=== PATIENT | female | born 1990 | race Caucasian/White ===

== ENCOUNTER 2016-08-22 17:22 | Emergency (ER) | payer OTHER ==
[~2016-08-22] VITALS: Ht 182.9 cm; Wt 100.0 kg
[~2016-08-22 17:22] MED LIST: BENZ100C84 PO; HYDR5SYP11 PO; LEVO1TAB33 PO; PLMIN90 INH; VNTHFA/IN INH
[2016-08-22 17:30] VITALS: TEMP 36.9; Ht 182.9 cm; Wt 100.0 kg
[2016-08-22] MEDS ORDERED: SODIUM CHLORIDE 0.9% 1000ML 1,000 ML IV STA ×2 (18:16)
[2016-08-22] MEDS ORDERED: ONDANSETRON INJ 2 MG/ML 2 ML VIAL IV STA (18:16)
[2016-08-22] MEDS ORDERED: MoRPHine SULFATE 10 MG/ML CARP/VIAL IV STA (18:16)
[2016-08-22] MEDS ORDERED: MoRPHine SULFATE 4 MG/ML 1 ML CARP\\VIAL IV PRN (18:30)
[2016-08-22 19:29] LABS: BASO % 0.1 %; BASO ABS # 0.02 K/uL (0-0.2); COMPLETE YES; HEMATOCRIT 41.1 % (37-47); IG% 0.6 %; LYMPH % 29.1 %; LYMPH ABS # 3.91 K/uL (1.2-3.4); MEAN CELL VOLUME 92.4 fL (80-100); MEAN CORPUSCULAR HEMOGLOBIN 32.4 pg (25-34); MEAN PLATELET VOLUME 9.9 fL (7.4-10.4); MONO % 7.8 %; NEUT % 60.4 %; PLATELET COUNT 211 K/uL (130-400); RED BLOOD COUNT 4.45 M/uL (4.2-5.4); WHITE BLOOD COUNT 13.45 K/uL (4.8-10.8)
[2016-08-22 19:47] LABS: ALT/SGPT 21 U/L (12-78); AMYLASE 69 U/L (25-115); BLOOD UREA NITROGEN 10 mg/dl (7-18); BUN/CREATININE RATIO 10.8 (10-20); CALCIUM 8.9 mg/dl (8.5-10.1); CARBON DIOXIDE 24 mmol/L (21-32); CHLORIDE 104 mmol/L (98-107); CREATININE 0.89 mg/dl (0.60-1.20); GLUCOSE 82 mg/dl (70-99); POTASSIUM 3.5 mmol/L (3.5-5.1); SODIUM 139 mmol/L (136-145)
[2016-08-22 19:52] LABS: ALB/GLOB RATIO 1.3 (0.9-2); ALKALINE PHOSPHATASE 57 U/L (45-117); AST/SGOT 15 U/L (15-37)
--- NOTE | 2016-08-22 20:01 | DIAGNOSTIC IMAGING REPORT ---
ABDOMEN 2VIEW W/PA CHEST RTN CLINICAL HISTORY: Abdominal and chest pain. Diarrhea. COMPARISON STUDY: 07/02/2016 FINDINGS: The erect chest reveals no free air. Hazy basilar densities are felt to relate to overlying breast tissue.] Supine views the abdomen reveal mildly dilated left upper quadrant small bowel loops. There is no conventional radiographic evidence of a high-grade bowel obstruction. IMPRESSION: 1. Nonspecific bowel gas pattern with mildly dilated left upper quadrant small bowel loops 2. No conventional radiographic evidence of a high-grade bowel obstruction. No evidence of free air. Electronically signed by: Surjit Morgan M.D. 08/22/2016 8:00 PM Dictated Date/Time: 08/22/2016 7:58 PM
[2016-08-22] MEDS ORDERED: AMPH20CA3 PO (20:11)
--- NOTE | 2016-08-22 20:19 | DIAGNOSTIC IMAGING REPORT ---
BILIARY ULTRASOUND CLINICAL HISTORY: Right upper quadrant abdominal pain, nausea and diarrhea. COMPARISON STUDY: CT scan performed December 2007 FINDINGS: The pancreas appears normal as visualized. No hepatic masses are visualized. The gallbladder appears sonographically normal. The common bile duct is at the upper limits of normal diameter measuring 6 mm. There is no significant right-sided hydronephrosis. IMPRESSION: Normal study Electronically signed by: Surjit Morgan M.D. 08/22/2016 8:18 PM Dictated Date/Time: 08/22/2016 8:16 PM
[2016-08-22] MEDS ORDERED: OPTIRAY 320 IV PRN (21:00)
--- NOTE | 2016-08-22 21:25 | DIAGNOSTIC IMAGING REPORT ---
CT ABD/PELVIS IV CONTRAST ONLY CLINICAL HISTORY: Abdominal pain, nausea, vomiting, diarrhea COMPARISON STUDY: Gallbladder ultrasound performed August 22, 2016, abdominal series performed the first 2016, CT scan performed December 2007 TECHNIQUE: Following the IV administration of 119 mL of Optiray-320, CT scan of the abdomen and pelvis was performed from the lung bases to the proximal femurs. Images are reviewed in the axial, sagittal, and coronal planes. IV contrast was administered without complication. CT DOSE: 634.40 mGy.cm FINDINGS: Lower chest: There are bibasal atelectatic changes. Liver: The contrast-enhanced liver is normal in size, contour, and attenuation. There is no intrahepatic biliary ductal dilatation. The hepatic veins and portal veins are patent. Gallbladder: Unremarkable. Spleen: Normal in size and attenuation. Pancreas: Unremarkable. Adrenal glands: Unremarkable. Kidneys: There is symmetric renal cortical enhancement. The kidneys are normal in size without hydronephrosis. Bowel: The appendix is surgically absent. There is no acute diverticulitis. There are no transition zones indicate bowel obstruction. Peritoneum: There is no intraperitoneal free air or abdominal ascites. Vasculature: The abdominal aorta is normal in course and caliber. Adenopathy: None. Pelvic viscera: The bladder, and pelvic viscera are unremarkable. Skeletal structures: There is bilateral L5 spondylolysis. There is a grade 1 spondylolisthesis of L5 and S1. IMPRESSION: 1. No acute intra-abdominal or pelvic findings 2. No evidence of bowel obstruction. No evidence of free air 3. No acute inflammatory changes Electronically signed by: Surjit Morgan M.D. 08/22/2016 9:24 PM Dictated Date/Time: 08/22/2016 9:20 PM
[2016-08-22] MEDS ORDERED: ONDA4TAB10 SL (21:57)
[2016-08-22] MEDS ORDERED: OMEP40CA41 PO (21:57)
[2016-08-22] MEDS ORDERED: OXYC1TAB3 PO (21:57)
--- NOTE | 2016-08-22 21:58 | EMERGENCY ROOM VISIT NOTE ---
History First contact with patient: 17:57 Chief Complaint: ABDOMINAL PAIN Stated Complaint: CHEST PAIN,ABDOMINAL PAIN,DIARRHEA,BACK/SHOULDER P Nursing Triage Summary: patient reoits having abd pain in right upper quad under ribs that has been persistant for 4 days with loose stools and nausea. History of Present Illness Patient is a 26-year-old white female who presents to the emergency department for evaluation of abdominal pain and diarrhea. She's had symptoms for the last 4 days. She notes epigastric and right upper quadrant pain that radiates through to her back and up to her midsternal area into her right shoulder. She notes a lot of bloating and feeling very gassy. She has a lot of cramping, but occasionally is doubled over because of sharp pain. She states that her symptoms are always worsened after eating. She also notes diarrhea, reporting roughly 10 loose watery bowel movements per day. She denies hematochezia or melena. She's been nauseous and had dry heaves but has not vomited. She denies any indigestion or reflux. She has not had a fever. She states that she has had similar episodes over the last 6 months but they have been shorter in duration and she has been able to tolerate them. They have never lasted this long and she has never previously been seen for this. She has not taken any medication for her discomfort which she presently rates an 8/10. She was speaking with her mom who suggested that it could be related to her gallbladder. She reports a grandmother had a history of a cholecystectomy. She denies any lower abdominal pain. She is status post appendectomy. She states that her last menstrual period was August 11, and she denies any chance of . She denies any prior gynecologic history including ovarian cyst or pelvic infections. Review of Systems Review of systems as per HPI. All other systems reviewed were negative. 10 systems reviewed. Past Medical/Surgical History Medical Problems: (1) ADD (attention deficit disorder) (2) Avulsion fracture of metatarsal bone of left foot (3) Bronchitis (4) Foot pain (5) Foreign body of finger of left hand, superficial (6) Headache (7) Headache (8) Headache (9) Laceration of thumb (10) Migraine (11) Shortness of breath (12) Strain of foot, left Surgical Problems: (1) History of appendectomy (2) History of arthroscopic knee surgery (3) History of nasal septoplasty (4) Status post tonsillectomy and adenoidectomy Electronic medical records are reviewed and summarized as above/below. See Problem List. Family History Cancer Diabetes mellitus Hypertension Kidney disease Kidney stones Social History Smoking Status: Current Every Day Smoker Alcohol Use: occasionally Drug Use: none Marital Status: single Housing Status: lives with significant other Occupation Status: employed Current/Historical Medications Scheduled Amphetamine-Dextroamphetamine 20MG (Adderall Xr 20MG), 20 MG PO BID Omeprazole (Prilosec), 1 CAP PO DAILY Scheduled PRN Ondasetron Odt (Zofran Odt), 4 MG SL Q4 PRN for Nausea or Vomiting Oxycodone Immediate Rel Tab (Roxicodone Ir), 1-2 TAB PO Q4H PRN for Severe Pain Allergies Coded Allergies: No Known Allergies (Verified , 07/02/16) Physical Exam Vital Signs Date Time Temp Pulse Resp B/P Pulse Ox O2 Delivery O2 Flow Rate FiO2 08/22/16 22:11 99 18 132/93 96 Room Air 08/22/16 20:55 97 16 118/74 96 Room Air 08/22/16 17:30 36.9 114 18 165/105 100 Room Air Physical Exam CONSTITUTIONAL: Patient is uncomfortable appearing 26-year-old white female who is awake and alert and in no acute distress. EYES: Pupils equal, round, reactive to light and accommodation. EOMs intact without nystagmus. Sclera are anicteric. ENT: Tympanic membranes intact, with normal landmarks. External canals are clear. Oral and nasopharynx are clear. Mucous membranes are moist, no lesions , tongue and gums appear normal. NECK: Supple without lymphadenopathy. No thyromegaly. No meningeal signs. Full active range of motion without discomfort. CARDIOVASCULAR: Regular rate and rhythm, with normal S1 and S2, no murmur or gallop or rub is heard. No carotid bruits auscultated. No JVD. Peripheral pulses easy to palpable. RESPIRATORY: Breath sounds equal and clear to auscultation without wheezes, rales, or rhonchi heard. Full and equal chest expansion without accessory muscle use or retractions. GI: Bowel sounds are present. Well-healed right lower quadrant surgical incision. Abdomen is soft, nondistended, tender to percussion and palpation in the epigastric and the right upper quadrant, with voluntary guarding. No organomegaly. No pulsatile masses. MUSCULOSKELETAL: Full range of motion of extremities x 4 with good strength. No cyanosis, edema, joint tenderness or swelling. No deformity. INTEGUMENTARY: No lesions or rash, normal skin turgor. NEUROLOGICAL: Alert, oriented, and cooperative. Cranial nerves, sensation and strength grossly intact. Pupils round, equal, and react to light, EOMs are full. LYMPH: No lymphadenopathy. Medical Decision & Procedures ER Provider Diagnostic Interpretation: ABDOMEN 2VIEW W/PA CHEST RTN CLINICAL HISTORY: Abdominal and chest pain. Diarrhea. COMPARISON STUDY: 07/02/2016 FINDINGS: The erect chest reveals no free air. Hazy basilar densities are felt to relate to overlying breast tissue.] Supine views the abdomen reveal mildly dilated left upper quadrant small bowel loops. There is no conventional radiographic evidence of a high-grade bowel obstruction. IMPRESSION: 1. Nonspecific bowel gas pattern with mildly dilated left upper quadrant small bowel loops 2. No conventional radiographic evidence of a high-grade bowel obstruction. No evidence of free air. BILIARY ULTRASOUND CLINICAL HISTORY: Right upper quadrant abdominal pain, nausea and diarrhea. COMPARISON STUDY: CT scan performed December 2007 FINDINGS: The pancreas appears normal as visualized. No hepatic masses are visualized. The gallbladder appears sonographically normal. The common bile duct is at the upper limits of normal diameter measuring 6 mm. There is no significant right-sided hydronephrosis. IMPRESSION: Normal study CT ABD/PELVIS IV CONTRAST ONLY CLINICAL HISTORY: Abdominal pain, nausea, vomiting, diarrhea COMPARISON STUDY: Gallbladder ultrasound performed August 22, 2016, abdominal series performed the first 2016, CT scan performed December 2007 TECHNIQUE: Following the IV administration of 119 mL of Optiray-320, CT scan of the abdomen and pelvis was performed from the lung bases to the proximal femurs. Images are reviewed in the axial, sagittal, and coronal planes. IV contrast was administered without complication. CT DOSE: 634.40 mGy.cm FINDINGS: Lower chest: There are bibasal atelectatic changes. Liver: The contrast-enhanced liver is normal in size, contour, and attenuation. There is no intrahepatic biliary ductal dilatation. The hepatic veins and portal veins are patent. Gallbladder: Unremarkable. Spleen: Normal in size and attenuation. Pancreas: Unremarkable. Adrenal glands: Unremarkable. Kidneys: There is symmetric renal cortical enhancement. The kidneys are normal in size without hydronephrosis. Bowel: The appendix is surgically absent. There is no acute diverticulitis. There are no transition zones indicate bowel obstruction. Peritoneum: There is no intraperitoneal free air or abdominal ascites. Vasculature: The abdominal aorta is normal in course and caliber. Adenopathy: None. Pelvic viscera: The bladder, and pelvic viscera are unremarkable. Skeletal structures: There is bilateral L5 spondylolysis. There is a grade 1 spondylolisthesis of L5 and S1. IMPRESSION: 1. No acute intra-abdominal or pelvic findings 2. No evidence of bowel obstruction. No evidence of free air 3. No acute inflammatory changes Laboratory Results 08/22/16 19:22 Red Blood Count 4.45, Mean Corpuscular Volume 92.4, Mean Corpuscular Hemoglobin 32.4, Mean Corpuscular Hemoglobin Concent 35.0, Mean Platelet Volume 9.9, Neutrophils (%) (Auto) 60.4, Lymphocytes (%) (Auto) 29.1, Monocytes (%) (Auto) 7.8, Eosinophils (%) (Auto) 2.0, Basophils (%) (Auto) 0.1, Neutrophils # (Auto) 8.12, Lymphocytes # (Auto) 3.91, Monocytes # (Auto) 1.05, Eosinophils # (Auto) 0.27, Basophils # (Auto) 0.02 08/22/16 19:22 Test 08/22/16 18:55 08/22/16 19:22 Urine Test NEG (NEG) White Blood Count 13.45 K/uL (4.8-10.8) Red Blood Count 4.45 M/uL (4.2-5.4) Hemoglobin 14.4 g/dL (12.0-16.0) Hematocrit 41.1 % (37-47) Mean Corpuscular Volume 92.4 fL (80-100) Mean Corpuscular Hemoglobin 32.4 pg (25-34) Mean Corpuscular Hemoglobin Concent 35.0 g/dl (32-36) Platelet Count 211 K/uL (130-400) Mean Platelet Volume 9.9 fL (7.4-10.4) Neutrophils (%) (Auto) 60.4 % Lymphocytes (%) (Auto) 29.1 % Monocytes (%) (Auto) 7.8 % Eosinophils (%) (Auto) 2.0 % Basophils (%) (Auto) 0.1 % Neutrophils # (Auto) 8.12 K/uL (1.4-6.5) Lymphocytes # (Auto) 3.91 K/uL (1.2-3.4) Monocytes # (Auto) 1.05 K/uL (0.11-0.59) Eosinophils # (Auto) 0.27 K/uL (0-0.5) Basophils # (Auto) 0.02 K/uL (0-0.2) RDW Standard Deviation 41.4 fL (36.4-46.3) RDW Coefficient of Variation 12.2 % (11.5-14.5) Immature Granulocyte % (Auto) 0.6 % Immature Granulocyte # (Auto) 0.08 K/uL (0.00-0.02) Anion Gap 11.0 mmol/L (3-11) Est Creatinine Clear Calc Drug Dose 127.9 ml/min Estimated GFR () 104.4 Estimated GFR (Non- 90.1 BUN/Creatinine Ratio 10.8 (10-20) Calcium Level 8.9 mg/dl (8.5-10.1) Total Bilirubin 0.5 mg/dl (0.2-1) Aspartate Amino Transf (AST/SGOT) 15 U/L (15-37) Alanine Aminotransferase (ALT/SGPT) 21 U/L (12-78) Alkaline Phosphatase 57 U/L (45-117) Troponin I < 0.015 ng/ml (0-0.045) Total Protein 7.7 gm/dl (6.4-8.2) Albumin 4.3 gm/dl (3.4-5.0) Globulin 3.4 gm/dl (2.5-4.0) Albumin/Globulin Ratio 1.3 (0.9-2) Amylase Level 69 U/L (25-115) Lipase 168 U/L (73-393) Medications Administered Medications (Trade) Dose Ordered Sig/Champ Route Start Time Stop Time Status Last Admin Dose Admin Sodium Chloride (Nss 1000ml) 1,000 ml @ 999 mls/hr Q1H1M STAT IV 08/22/16 18:16 08/22/16 19:16 DC 08/22/16 19:34 999 MLS/HR Ondansetron HCl (Zofran Inj) 4 mg NOW STAT IV 08/22/16 18:16 08/22/16 18:20 DC 08/22/16 19:33 4 MG Morphine Sulfate (MoRPHine SULFATE INJ) 6 mg NOW STAT IV 08/22/16 18:16 08/22/16 18:20 DC 08/22/16 19:33 6 MG Morphine Sulfate (MoRPHine SULFATE INJ) 4 mg Q1H PRN IV 08/22/16 18:30 08/22/16 22:36 DC 08/22/16 20:58 4 MG Ondansetron HCl (ZOFRAN ODT 4MG Home Pack) 1 homepack UD ONCE PO 08/22/16 22:00 08/22/16 22:01 DC 08/22/16 22:08 1 HOMEPACK Oxycodone HCl (Roxicodone Immediate Rel 5MG Home Pack) 1 homepack UD ONCE PO 08/22/16 22:00 08/22/16 22:01 DC 08/22/16 22:08 1 HOMEPACK ECG Indication: abdominal pain Rate (beats per minute): 94 Rhythm: normal sinus Findings: no acute ischemic change, no ectopy Change: no significant change ED Course The patient was seen and evaluated as above. Old records are reviewed. IV access was obtained and she was hydrated with normal saline solution. She was medicated with morphine and Zofran IV. Laboratory studies were collected including CBC with differential, CMP, amylase, lipase and troponin. Urine dip was completely clear and test was negative. EKG was obtained and was unremarkable. There is no evidence for acute ischemic changes or ectopy. Acute abdominal series was obtained and was unremarkable. Chest was clear there was no evidence for obstructive pattern. Given her right upper quadrant pain, ultrasound was obtained, which did not demonstrate evidence for cholelithiasis or acute cholecystitis. Laboratories studies demonstrated a slightly elevated white count at 13,400 with left shift, she is not anemic. Electrolytes and liver functions are within normal limits. Pancreatic enzymes are not elevated. Troponin is negative. Given her persistent right-sided abdominal pain, did elect to perform CT scan of the abdomen and pelvis with IV contrast. There is no evidence for intra- abdominal or pelvic findings. No evidence for acute inflammatory changes, free air or bowel obstruction. All laboratory and diagnostic imaging findings were discussed with the patient. Differential diagnoses entertained includes GERD, gastritis, esophagitis, peptic ulcer disease, pancreatitis, biliary colic, acute cholecystitis, cholelithiasis, bowel obstruction, perforation, among others. Supportive care measures were discussed. She was encouraged to follow a clear liquid diet, and was given prescriptions for Prilosec and Zofran and a small prescription for oxycodone. She was encouraged to follow-up with her primary care provider as she may require further workup including HIDA scan or GI evaluation. Medical Decision See ED Course. Impression Primary Impression: Right upper quadrant abdominal pain Departure Information Prescriptions Oxycodone Immediate Rel Tab (ROXICODONE IR) 5 Mg Tab 1-2 TAB PO Q4H Y for Severe Pain, #10 TAB For Initial Treatment Prov: Mindy Hayes PA 08/22/16 Omeprazole (PRILOSEC) 40 Mg Cap 1 CAP PO DAILY for 30 Days, #30 CAP 3 Refills Prov: Minyd Hayes PA 08/22/16 Ondasetron Odt (ZOFRAN ODT) 4 Mg Tab 4 MG SL Q4 Y for Nausea or Vomiting, #20 TAB Prov: Mindy Hayes PA 08/22/16 Referrals Kike Dominguez M.D. (PCP) Patient Instructions [facility] Additional Instructions ABDOMINAL PAIN INSTRUCTIONS: DO NOT drive, drink alcohol, operate machinery, or perform dangerous activities today. You were given medications in the ER that can affect your ability to safely function or operate a vehicle. Oxycodone (OxyIR) 5mg: Take 1-2 pills every four hours as needed for breakthrough pain. Avoid alcohol, operating machinery or dangerous equipment, working on ladders or roofs, DRIVING, making important decisions, or situations where being under the influence may be dangerous. It is recommended to use an [id number] stool softener such as Colace, 100mg twice daily while taking this medication to avoid constipation. Acetaminophen(Tylenol) may be used for fever or pain. Use 1000mg every eight hours as needed. Avoid using more than 3000mg in a 24 hour period. This is available over the counter. Zofran(odansetron) tablets 4mg: Take one and allow it to dissolve in your mouth every four hours as needed for nausea or vomiting. Prilosec 40mg : Take 1 tablet daily. Read all the package inserts or medication information paperwork provided. If you have any questions or concerns call your primary provider, pharmacist or the ER for assistance. Rest and drink plenty of fluids as tolerated. Slow sips of water or sports drinks are recommended instead of large amounts all at once. Continue current medications. Once your stomach is settled start with a clear liquid diet (jello, soup broth, etc.) and then advance as tolerated. You should avoid full, heavy meals for about 24 hrs from the time your symptoms resolved. Avoid greasy, fatty foods. Return to the ER immediately for worsening or persistent abdominal pain, vomiting, fevers, chest pains, difficulty breathing, black or bloody stools, worsening of your condition, or as needed. Follow up with your primary physician in 1-2 days for a recheck of your current condition.
[2016-08-22] MEDS ORDERED: OXYCODONE IR HOME PACK PO ONE (22:00)
[2016-08-22] MEDS ORDERED: ONDANSETRON HOME PACK 4MG OD TAB PO ONE (22:00)
[2016-08-22 22:11] VITALS: BP 132/93; PULSE 99; O2SAT 96
[2016-08-25] MEDS ORDERED: CYCL10TA6 PO (14:19)
[2016-08-25] MEDS ORDERED: OXYC-57 PO (14:19)
== END 2016-08-22 22:12 | disposition home or self-care (01) ==
LOC: C.EDB 17:23 → C.EDC 22:12
DX: R10.11 Right upper quadrant pain (principal); F90.9 Attention-deficit hyperactivity disorder, unspecified type; F17.200 Nicotine dependence, unspecified, uncomplicated; Z87.81 Personal history of (healed) traumatic fracture; Z87.828 Personal history of other (healed) physical injury and trauma; Z98.890 Other specified postprocedural states; Z79.899 Other long term (current) drug therapy; Z80.9 Family history of malignant neoplasm, unspecified; Z83.3 Family history of diabetes mellitus; Z82.49 Family history of ischemic heart disease and other diseases of the circulatory system; Z84.1 Family history of disorders of kidney and ureter

== ENCOUNTER 2016-08-24 22:58 | Observation (INO) | payer OTHER ==
[~2016-08-24] VITALS: Ht 182.9 cm; Wt 101.8 kg
[~2016-08-24 22:58] MED LIST changes: +AMPH20CA3 PO; -BENZ100C84 PO; -HYDR5SYP11 PO; -LEVO1TAB33 PO; +OMEP40CA41 PO; +ONDA4TAB10 SL; +OXYC1TAB3 PO; -PLMIN90 INH; -VNTHFA/IN INH
[2016-08-24] MEDS ORDERED: MoRPHine SULFATE 4 MG/ML 1 ML CARP\\VIAL IV STA (23:31)
[2016-08-24] MEDS ORDERED: ONDANSETRON INJ 2 MG/ML 2 ML VIAL IV STA (23:31)
[2016-08-24] MEDS ORDERED: SODIUM CHLORIDE 0.9% 1000ML 1,000 ML IV STA (23:31)
[2016-08-25 00:08] LABS: URINE APPEARANCE CLEAR (CLEAR); URINE BILIRUBIN NEG (NEG); URINE COLOR YELLOW; URINE NITRITE NEG (NEG); URINE PH 6.5 (4.5-7.5); URINE SPECIFIC GRAVITY 1.024 (1.000-1.030); UROBILINOGEN NEG (NEG)
[2016-08-25 00:28] LABS: BASO % 0.2 %; BASO ABS # 0.02 K/uL (0-0.2); COMPLETE YES; EOS % 2.3 %; HEMATOCRIT 39.3 % (37-47); IG% 0.7 %; LYMPH % 38.7 %; LYMPH ABS # 3.78 K/uL (1.2-3.4); MEAN CELL VOLUME 93.1 fL (80-100); MEAN CORPUSCULAR HEMOGLOBIN 33.2 pg (25-34); MEAN CORPUSCULAR HGB CONC 35.6 g/dl (32-36); MEAN PLATELET VOLUME 10.3 fL (7.4-10.4); MONO % 10.1 %; PLATELET COUNT 197 K/uL (130-400); RED BLOOD COUNT 4.22 M/uL (4.2-5.4); WHITE BLOOD COUNT 9.77 K/uL (4.8-10.8)
[2016-08-25 00:31] LABS: MANUAL MICROSCOPIC REQUIRED? NO; REVIEW REQ? NO
[2016-08-25 00:51] LABS: ALKALINE PHOSPHATASE 55 U/L (45-117); ALT/SGPT 23 U/L (12-78); AST/SGOT 19 U/L (15-37); BLOOD UREA NITROGEN 9 mg/dl (7-18); CALCIUM 8.8 mg/dl (8.5-10.1); CARBON DIOXIDE 27 mmol/L (21-32); CHLORIDE 106 mmol/L (98-107); CREATININE 0.78 mg/dl (0.60-1.20); GLUCOSE 93 mg/dl (70-99); POTASSIUM 3.7 mmol/L (3.5-5.1); SODIUM 141 mmol/L (136-145)
[2016-08-25] MEDS ORDERED: KETOROLAC TROMETHAMINE 30 MG/ML VIAL IV STA (00:52)
[2016-08-25] MEDS ORDERED: HYDROmorphone INJ 1 MG/ML SYR IV PRN (02:00)
[2016-08-25 02:01] LABS: PARTIAL THROMBOPLASTIN RATIO 1.1
--- NOTE | 2016-08-25 02:07 | EMERGENCY ROOM VISIT NOTE ---
History Report prepared by Gallo: Manan Herring Under the Supervision of: Dr. Kala Lemus D.O. First contact with patient: 23:07 Chief Complaint: ABDOMINAL PAIN Stated Complaint: ABDOMINAL,CHEST,BACK PAIN NAUSEA,VOMITING History of Present Illness The patient is a 26 year old female who presents to the Emergency Room with complaints of persistent abdominal "cramping" beginning 6 days ago. She was seen in the ED earlier this week for similar symptoms, but states that her symptoms have not improved. She denies any known fevers. The patient also complains of "greyish-bluish" stools, and chills. Her last normal bowel movement was several hours ago. She states that she experienced some chest pain as well, but does not have any currently. The patient states that she has been noticing her abdominal pain and chest pain over the past 6 months, but states that it was never regular until this week. Source of History: patient Onset: last week Position: abdomen Timing: other (persistent) Associated Symptoms: + chills, No fevers Note: The patient complains of "greyish-bluish" stools. Review of Systems See HPI for pertinent positives & negatives. A total of 10 systems reviewed and were otherwise negative. Past Medical & Surgical Medical Problems: (1) ADD (attention deficit disorder) (2) Avulsion fracture of metatarsal bone of left foot (3) Bronchitis (4) Foot pain (5) Foreign body of finger of left hand, superficial (6) Headache (7) Headache (8) Headache (9) Laceration of thumb (10) Migraine (11) Shortness of breath (12) Strain of foot, left Surgical Problems: (1) History of appendectomy (2) History of arthroscopic knee surgery (3) History of nasal septoplasty (4) Status post tonsillectomy and adenoidectomy Family History Cancer Diabetes mellitus Hypertension Kidney disease Kidney stones Social History Smoking Status: Current Every Day Smoker Alcohol Use: occasionally Drug Use: none Marital Status: single Housing Status: lives with significant other Occupation Status: employed Current/Historical Medications Scheduled Amphetamine-Dextroamphetamine 20MG (Adderall Xr 20MG), 20 MG PO BID Omeprazole (Prilosec), 1 CAP PO DAILY Scheduled PRN Ondasetron Odt (Zofran Odt), 4 MG SL Q4 PRN for Nausea or Vomiting Oxycodone Immediate Rel Tab (Roxicodone Ir), 1-2 TAB PO Q4H PRN for Severe Pain Allergies Coded Allergies: No Known Allergies (Verified , 07/02/16) Physical Exam Vital Signs Date Time Temp Pulse Resp B/P Pulse Ox O2 Delivery O2 Flow Rate FiO2 08/25/16 01:30 84 24 144/91 97 Room Air 08/25/16 00:39 78 30 134/89 98 Room Air 08/24/16 23:00 37.0 105 20 162/105 96 Room Air Physical Exam HEENT: Head - normocephalic and atraumatic Pupils are equal, round, and reactive to light. Extraocular eye muscles are intact, and sclera are anicteric. Nose - moist nasal mucosa without discharge. Mouth - moist buccal mucosa. Oropharynx is nonerythematous and there is no tonsillar exudate or edema noted. Neck: Supple; no JVD, nuchal rigidity, cervical lymphadenopathy. Heart: Regular rate and rhythm. There is a normal S1 and S2 with no murmurs, clicks, or gallops appreciated. Lungs: Clear to auscultation bilaterally with no wheezes, rales, or rhonchi. Abdomen: Soft, nondistended, with good bowel sounds. Pain in the suprapubic region and RUQ area. There are no palpable pulsatile masses or hepatosplenomegaly. There is no guarding, rigidity, or rebound noted. Extremities: No evidence of cyanosis, clubbing, or edema. There are easily palpable peripheral pulses. Skin: warm and dry with good turgor and no rashes. Medical Decision & Procedures Laboratory Results 08/25/16 00:17 Red Blood Count 4.22, Mean Corpuscular Volume 93.1, Mean Corpuscular Hemoglobin 33.2, Mean Corpuscular Hemoglobin Concent 35.6, Mean Platelet Volume 10.3, Neutrophils (%) (Auto) 48.0, Lymphocytes (%) (Auto) 38.7, Monocytes (%) (Auto) 10.1, Eosinophils (%) (Auto) 2.3, Basophils (%) (Auto) 0.2, Neutrophils # (Auto ) 4.69, Lymphocytes # (Auto) 3.78, Monocytes # (Auto) 0.99, Eosinophils # (Auto ) 0.22, Basophils # (Auto) 0.02 08/25/16 00:17 Test 08/24/16 23:15 08/25/16 00:17 Urine Color YELLOW Urine Appearance CLEAR (CLEAR) Urine pH 6.5 (4.5-7.5) Urine Specific [place] 1.024 (1.000-1.030) Urine Protein NEG (NEG) Urine Glucose (UA) NEG (NEG) Urine Ketones NEG (NEG) Urine Occult Blood NEG (NEG) Urine Nitrite NEG (NEG) Urine Bilirubin NEG (NEG) Urine Urobilinogen NEG (NEG) Urine Leukocyte Esterase NEG (NEG) White Blood Count 9.77 K/uL (4.8-10.8) Red Blood Count 4.22 M/uL (4.2-5.4) Hemoglobin 14.0 g/dL (12.0-16.0) Hematocrit 39.3 % (37-47) Mean Corpuscular Volume 93.1 fL (80-100) Mean Corpuscular Hemoglobin 33.2 pg (25-34) Mean Corpuscular Hemoglobin Concent 35.6 g/dl (32-36) Platelet Count 197 K/uL (130-400) Mean Platelet Volume 10.3 fL (7.4-10.4) Neutrophils (%) (Auto) 48.0 % Lymphocytes (%) (Auto) 38.7 % Monocytes (%) (Auto) 10.1 % Eosinophils (%) (Auto) 2.3 % Basophils (%) (Auto) 0.2 % Neutrophils # (Auto) 4.69 K/uL (1.4-6.5) Lymphocytes # (Auto) 3.78 K/uL (1.2-3.4) Monocytes # (Auto) 0.99 K/uL (0.11-0.59) Eosinophils # (Auto) 0.22 K/uL (0-0.5) Basophils # (Auto) 0.02 K/uL (0-0.2) RDW Standard Deviation 41.0 fL (36.4-46.3) RDW Coefficient of Variation 12.1 % (11.5-14.5) Immature Granulocyte % (Auto) 0.7 % Immature Granulocyte # (Auto) 0.07 K/uL (0.00-0.02) Activated Partial Thromboplast Time 27.8 SECONDS (21.0-31.0) Partial Thromboplastin Ratio 1.1 D-Dimer < 190 ug/L FEU (0-500) Anion Gap 8.0 mmol/L (3-11) Est Creatinine Clear Calc Drug Dose 147.2 ml/min Estimated GFR () 122.5 Estimated GFR (Non- 105.7 BUN/Creatinine Ratio 12.0 (10-20) Calcium Level 8.8 mg/dl (8.5-10.1) Magnesium Level 2.0 mg/dl (1.8-2.4) Total Bilirubin 0.3 mg/dl (0.2-1) Direct Bilirubin mg/dl (0-0.2) Aspartate Amino Transf (AST/SGOT) 19 U/L (15-37) Alanine Aminotransferase (ALT/SGPT) 23 U/L (12-78) Alkaline Phosphatase 55 U/L (45-117) Troponin I < 0.015 ng/ml (0-0.045) Total Protein 7.2 gm/dl (6.4-8.2) Albumin 4.1 gm/dl (3.4-5.0) Lipase 167 U/L (73-393) Chemistry Specimen Hemolysis Laboratory results per my review. Medications Administered Medications (Trade) Dose Ordered Sig/Champ Route Start Time Stop Time Status Last Admin Dose Admin Sodium Chloride (Nss 1000ml) 1,000 ml @ 999 mls/hr Q1H1M STAT IV 08/24/16 23:31 08/25/16 00:31 DC 08/25/16 00:33 999 MLS/HR Ondansetron HCl (Zofran Inj) 4 mg NOW STAT IV 08/24/16 23:31 08/24/16 23:33 DC 08/25/16 00:31 4 MG Morphine Sulfate (MoRPHine SULFATE INJ) 4 mg NOW STAT IV 08/24/16 23:31 08/24/16 23:33 DC 08/25/16 00:32 4 MG Ketorolac Tromethamine (Toradol Inj) 30 mg NOW STAT IV 08/25/16 00:52 08/25/16 00:53 DC 08/25/16 01:04 30 MG Procedure Medications include: Morphine Sulfate IV, Zofran IV, NSS IV, Toradol IV. ED Course 2322: Past medical records reviewed. The patient was evaluated in room A11. A complete history and physical exam was performed. An IV lock was initiated and labs are drones above. 2331: Ordered Morphine Sulfate 4 mg IV, Zofran Inj 4 mg IV, NSS 1000 mL @ 999 mL /hr IV. 0050: I reassessed the patient. She has seen no relief from the Morphine. 0052: Ordered Toradol Inj 30 mg IV. 0122: Upon reevaluation, I discussed findings and results with the patient. She verbalized agreement of the treatment plan. [facility] The patient will be evaluated for further management and care. Medical Decision The patient is a 26 year old female who presents to the ED with abdominal pain. Differential diagnosis includes pancreatitis, cholecystitis, GERD, ulcerative disease, as well as other etiologies were considered. Laboratory studies: Normal white count. Stable H&H. Normal renal function. Normal glucose and LFTs. Lipase 167. Urinalysis is clean. This is a 26-year-old female who presents with intractable right upper quadrant abdominal pain. Despite taking oral pain medications at home, she has persistent right upper quadrant abdominal pain and nausea/vomiting. The patient underwent CT scan of the abdomen/pelvis and right upper quadrant ultrasound while here earlier this week. The patient has had multiple doses of pain medications here in the ER without any relief of her symptoms. I [facility] the [facility] and they will evaluate for further management. Consults Time Called: 114 Consulting Physician: Dr. Jazmin Hayes Returned Call: 012 Discussed the patient's case. The patient will be evaluated for further management. Impression Primary Impression: Intractable right upper quadrant abdominal pain Scribe Attestation The scribe's documentation has been prepared under my direction and personally reviewed by me in its entirety. I confirm that the note above accurately reflects all work, treatment, procedures, and medical decision making performed by me. Departure Information Dispostion Being Evaluated By Hospitalist Referrals Kike Dominguez M.D. (PCP) Patient Instructions [facility]
[2016-08-25] MEDS ORDERED: GI COCKTAIL PO ONE (02:15)
[2016-08-25] MEDS ORDERED: LORAZEPAM 2 MG/ML 1 ML VIAL IV PRN (02:30)
[2016-08-25] MEDS ORDERED: PROMETHAZINE HCL INJ 12.5 MG in SODIUM CHLORIDE 0.9% 50ML 50 ML IV PRN (02:30)
[2016-08-25] MEDS ORDERED: OXYCODONE/ACETAMINOPHEN 5-325 TAB PO PRN (02:30)
[2016-08-25] MEDS ORDERED: LACTATED RINGER'S 1000ML 1,000 ML IV ONE (02:30)
[2016-08-25] MEDS ORDERED: ONDANSETRON INJ 2 MG/ML 2 ML VIAL IV PRN (02:30)
[2016-08-25] MEDS ORDERED: DICYCLOMINE HCL 20 MG TAB PO PRN (02:30)
[2016-08-25] MEDS ORDERED: ACETAMINOPHEN IV 650 MG in EMPTY BAG 0 ML IV PRN (02:30)
[2016-08-25] MEDS ORDERED: IV FLUIDS COMPLETED PRN (03:00)
[2016-08-25] MEDS ORDERED: ALUMINUM/MAGNESIUM SUSP 30 ML UDC ONE (03:05)
[2016-08-25] MEDS ORDERED: LIDOCAINE HCL 2% VISC SOLN 20 ML UDC ONE (03:05)
[2016-08-25 03:11] VITALS: O2SAT 98
[2016-08-25] MEDS ORDERED: OXYCODONE/ACETAMINOPHEN 10/325MG TAB ONE (03:16)
[2016-08-25] MEDS ORDERED: OXYCODONE/ACETAMINOPHEN 5-325 TAB ONE (03:20)
[2016-08-25] MEDS ORDERED: HYDROmorphone INJ 1 MG/ML SYR IV ONE (04:16)
--- NOTE | 2016-08-25 04:28 | HISTORY & PHYSICAL EXAMINATION ---
DATE OF ADMISSION: 08/25/2016 PRIMARY CARE DOCTOR: CHIEF COMPLAINT: Right-sided abdominal pain. HISTORY OF PRESENT ILLNESS: Medical history significant for ADHD, ongoing tobacco abuse, migraine. hx migraine sp occipital nerve injection One week history of right-sided abdominal pain, achy, sharp, going to her chest and back, nausea with one episode of vomiting. Good bowel movement. No fever, no chills. no cough sx. Denies unusual exertion or on lifting. Patient recalls couple of similar episodes in the last 6 months w spontaneous resolution. Seen at the Emergency Room a few days ago. CAT scan of the abd pelvis, gallbladder US were normal. Bloodwork normal. Given prescriptions for Prilosec, Zofran with no response. intractable pain at home. Patient returned to the Emergency Room tonight. MEDICAL HISTORY: As above. SURGERIES: Appendectomy, knee surgery, septoplasty, tonsillectomy and adenoidectomy. HOME MEDICATIONS: Include Zofran, Oxy-IR Adderall, omeprazole. ALLERGIES: No known drug allergies. FAMILY HISTORY: Hypertension. PERSONAL SOCIAL HISTORY: About 4 packs per week. No chronic intake of alcoholic beverages. [employer] employee REVIEW OF SYSTEMS: As per HPI. all other ROS negative PHYSICAL EXAMINATION: VITAL SIGNS: Blood pressure was noted to be 134/89, pulse 90 RR 27, T 37 O2 sats 97% on room air. GENERAL: Noted to be obese, uncomfortable, in no respiratory distress. SKIN: Normal color. HEENT: [place] palpebral conjunctivae. Dry mucosa. NECK: Short neck. LUNGS: Decreased breath sounds. ABDOMEN: RUQ/epigastric tenderness (hyperaesthetic) EXTREMITIES: No edema. no tenderness NEUROLOGIC: No gross focality. LABS: Hemoglobin 14, hematocrit 30, white cells 9.7, platelets 187. Sodium 140, potassium 3.7, chloride 105, CO2 27, BUN 9, creatinine 0.7, glucose 100 LFTs, lipase N, D-dimer was normal. Troponin normal. UA was normal. CXR no infiltrate ASSESSMENT: 1. Right upper quadrant/epigastric pain. Differentials include : gastric pathology (?gastritis) abd wall ? IBS. No signs of toxicity. 2. ADD, stable on meds 3. Ongoing tobacco abuse. 4. hx MRSA PLAN: Observation GMF analgesia GI cocktail, PPI trial antispasmodics prn Warm compress for ant abd wall Consider GI consult in the morning if without response to above measures. Nicotine patch. DVT prophylaxis, SCDs. Full code. MTDD
[2016-08-25] MEDS ORDERED: PANTOprazole INJ 40 MG in SYRINGE 0 ML IV ONE (04:30)
[2016-08-25] MEDS ORDERED: LORAZEPAM INJ 0.5 MG in SYRINGE 0.75 ML IV PRN (04:45)
[2016-08-25] MEDS ORDERED: ALUMINUM/MAGNESIUM SUSP 18 ML, LIDOCAINE HCL 2% VISCOUS SOLN 6 ML, BARCODE IDENTIFIER 1 EA PO ONE ×4 (04:45→12:30)
[2016-08-25 04:47] VITALS: BP 125/87; PULSE 80; TEMP 36.5; Ht 182.9 cm; Wt 101.8 kg
--- NOTE | 2016-08-25 06:34 | DIAGNOSTIC IMAGING REPORT ---
CHEST ONE VIEW PORTABLE CLINICAL HISTORY: sob dyspnea COMPARISON STUDY: 08/22/2016 FINDINGS: The bones soft tissues and hemidiaphragms are normal. The cardiomediastinal silhouette is normal. The lungs are clear. The pulmonary vasculature is normal. IMPRESSION: Negative chest. Electronically signed by: Kike Alvarado M.D. 08/25/2016 6:33 AM Dictated Date/Time: 08/25/2016 6:33 AM
[2016-08-25] MEDS ORDERED: NICOTINE 7 MG/24 HR TDSY TD SCH (09:00)
[2016-08-25] MEDS ORDERED: AMPHETAMINE ASP/SULF/DEXTRAMPH ER 20 MG CAP PO SCH (09:00)
[2016-08-25] MEDS ORDERED: PANTOprazole SOD 40 MG TAB PO SCH (09:00)
[2016-08-25 09:56] VITALS: BP 127/78; PULSE 80; TEMP 36.7; O2SAT 98
[2016-08-25] MEDS ORDERED: NURSING VERBAL MED ORDER ONE (12:00)
--- NOTE | 2016-08-25 14:18 | Progress Note ---
Subjective Date of Service: Aug 25, 2016. Subjective Pt evaluation today including: conversation w/ patient, physical exam, lab review, review of studies, review of inpatient medication list Saw/examined the patient in room 382 She tells me she is having right upper quadrant abdominal pain; worse with palpation and inspiration She had a cough last week, and states maybe her pain is from deep coughs She also has some reflux symptoms, improved with meds Currently seated and comfortable after being medicated Problem List Medical Problems: (1) ADD (attention deficit disorder) Status: Chronic (2) Intractable right upper quadrant abdominal pain Status: Acute (3) Migraine Status: Chronic (4) Right upper quadrant abdominal pain Status: Acute Review of Systems Constitutional: No chills, No fever, No weight loss Respiratory: No cough, No dyspnea at rest, No dyspnea on exertion, No shortness of breath, No sputum, No wheezing Cardiac: No chest pain, No edema, No palpitations Abdomen: + pain, + see HPI, No GI bleeding, No constipation, No diarrhea, No nausea, No vomiting Female : No dysuria, No urinary frequency Medications Current Inpatient Medications Medications (Trade) Dose Ordered Sig/Champ Route Start Time Stop Time Status Last Admin Dose Admin Hydromorphone HCl (Dilaudid Inj) 0.5 mg Q6H PRN IV 08/25/16 02:00 09/08/16 01:59 08/25/16 08:57 0.5 MG Dicyclomine HCl 20 mg 20 mg Q6H PRN PO 08/25/16 02:30 09/24/16 02:29 Acetaminophen/ Empty Bag (Ofirmev IV/ Empty Iv Bag 100ml) 65 ml @ 260 mls/hr Q6H PRN IV 08/25/16 02:30 09/24/16 02:29 Ondansetron HCl 4 mg 4 mg Q6H PRN IV 08/25/16 02:30 09/24/16 02:29 Promethazine HCl/ Sodium Chloride (Phenergan Inj/ Nss 50ml) 50.5 ml @ 204 mls/hr Q6H PRN IV 08/25/16 02:30 09/24/16 02:29 Amphetamine Aspartate/ Amphetam Sulf (Amphetamine Aspartate/Amphe Sulf/Dextramphet) 20 mg BID PO 08/25/16 09:00 09/08/16 08:59 08/25/16 08:38 20 MG Oxycodone/ Acetaminophen pain not relieved by tyle... Q6H PRN PO 08/25/16 02:30 09/08/16 02:29 Lactated Ringer's (Lr 1000ml) 1,000 ml @ 75 mls/hr [id number] ONCE IV 08/25/16 02:30 08/25/16 15:49 08/25/16 05:08 75 MLS/HR Nicotine (Nicoderm Cq 7 Mg Patch) 1 patch QAM TD 08/25/16 09:00 09/24/16 08:59 08/25/16 08:38 1 PATCH Miscellaneous (Remove Nicoderm Patch) 1 ea HS N/A 08/25/16 21:00 09/24/16 20:59 Miscellaneous 1 ea 1 ea PRN PRN N/A 08/25/16 03:00 08/25/17 02:59 Lorazepam/Syringe (Ativan Inj/ Syringe) 1 ml @ 1 mls/min Q4H PRN IV 08/25/16 04:45 09/24/16 04:44 Pantoprazole Sodium (Protonix Tab) 40 mg DAILY PO 08/26/16 09:00 09/25/16 08:59 Objective Vital Signs Date Time Temp Pulse Resp B/P Pulse Ox O2 Delivery O2 Flow Rate FiO2 08/25/16 11:59 Room Air 08/25/16 09:56 36.7 80 18 127/78 98 Room Air 08/25/16 08:00 Room Air 08/25/16 04:47 36.5 80 16 125/87 Room Air 08/25/16 03:11 84 22 121/71 98 Room Air 08/25/16 01:30 84 24 144/91 97 Room Air 08/25/16 00:39 78 30 134/89 98 Room Air 08/24/16 23:00 37.0 105 20 162/105 96 Room Air Physical Exam General Appearance: + mild distress (secondary to pain; right sided) Respiratory/Chest: lungs clear, normal breath sounds, no respiratory distress, no accessory muscle use Cardiovascular: regular rate, rhythm, no edema, no murmur Abdomen: normal bowel sounds, soft, + tenderness (right upper quadrant worse with palpation) Extremities: normal inspection, no pedal edema Neurologic/Psychiatric: no motor/sensory deficits, alert, normal mood/affect Laboratory Results Last 24 Hours Test 08/24/16 23:15 08/25/16 00:17 Urine Color YELLOW Urine Appearance CLEAR Urine pH 6.5 Urine Specific [place] 1.024 Urine Protein NEG Urine Glucose (UA) NEG Urine Ketones NEG Urine Occult Blood NEG Urine Nitrite NEG Urine Bilirubin NEG Urine Urobilinogen NEG Urine Leukocyte Esterase NEG White Blood Count 9.77 K/uL Red Blood Count 4.22 M/uL Hemoglobin 14.0 g/dL Hematocrit 39.3 % Mean Corpuscular Volume 93.1 fL Mean Corpuscular Hemoglobin 33.2 pg Mean Corpuscular Hemoglobin Concent 35.6 g/dl Platelet Count 197 K/uL Mean Platelet Volume 10.3 fL Neutrophils (%) (Auto) 48.0 % Lymphocytes (%) (Auto) 38.7 % Monocytes (%) (Auto) 10.1 % Eosinophils (%) (Auto) 2.3 % Basophils (%) (Auto) 0.2 % Neutrophils # (Auto) 4.69 K/uL Lymphocytes # (Auto) 3.78 K/uL Monocytes # (Auto) 0.99 K/uL Eosinophils # (Auto) 0.22 K/uL Basophils # (Auto) 0.02 K/uL RDW Standard Deviation 41.0 fL RDW Coefficient of Variation 12.1 % Immature Granulocyte % (Auto) 0.7 % Immature Granulocyte # (Auto) 0.07 K/uL Activated Partial Thromboplast Time 27.8 SECONDS Partial Thromboplastin Ratio 1.1 D-Dimer < 190 ug/L FEU Sodium Level 141 mmol/L Potassium Level 3.7 mmol/L Chloride Level 106 mmol/L Carbon Dioxide Level 27 mmol/L Anion Gap 8.0 mmol/L Blood Urea Nitrogen 9 mg/dl Creatinine 0.78 mg/dl Est Creatinine Clear Calc Drug Dose 147.2 ml/min Estimated GFR () 122.5 Estimated GFR (Non- 105.7 BUN/Creatinine Ratio 12.0 Random Glucose 93 mg/dl Calcium Level 8.8 mg/dl Magnesium Level 2.0 mg/dl Total Bilirubin 0.3 mg/dl Direct Bilirubin mg/dl Aspartate Amino Transf (AST/SGOT) 19 U/L Alanine Aminotransferase (ALT/SGPT) 23 U/L Alkaline Phosphatase 55 U/L Troponin I < 0.015 ng/ml Total Protein 7.2 gm/dl Albumin 4.1 gm/dl Lipase 167 U/L Chemistry Specimen Hemolysis Assessment and Plan This is a 26 year old female with PMH of ADHD, tobacco use presents with right upper quadrant abdominal pain Right Upper Quadrant Abdominal pain patient presented to the ER on 08/[address] abdomen/pelvis performed, no significant findings CXR/Abdominal X-ray - no significant findings RUQ U/S = no gallbladder disease hemodynamically stable no findings on labwork: CMP, lipase wnl likely musculoskeletal due to worsening with palpation will d/c on a three day supply of Percocet, Flexeril, and PPI outpatient f/u with PCP on 08/27/[address] Dominguez DVT ppx SCDs FULL CODE
[2016-08-25] MEDS ORDERED: OXYC-57 PO (14:19)
[2016-08-25] MEDS ORDERED: CYCL10TA6 PO (14:19)
--- NOTE | 2016-08-25 14:21 | Discharge Instructions ---
Discharge Instructions Admission Reason for Admission: Intractable Right Upper Quadrant Abdominal Pain Discharge Discharge Diagnosis / Problem: Right Upper Quadrant Abdominal Pain, likely musculoskeletal Discharge Goals Goal(s): Decrease discomfort, Improve function Activity Recommendations Activity Limitations: per Instructions/Follow-up section . Instructions / Follow-Up Instructions / Follow-Up Please follow-up with Dr. Dominguez on August 27 @ 3:00PM * You will be discharged on Percocet (narcotic pain medication) - do not drive if taking this medication * You will be discharged on Flexeril (muscle relaxer) - do not drive if taking this medication Current Hospital Diet Patient's current hospital diet: Clear Liquid Diet Discharge Diet Recommended Diet: Regular Diet Pending Studies Studies pending at discharge: no Medical Emergencies . Who to Call and When: Medical Emergencies: If at any time you feel your situation is an emergency, please call 911 immediately. . Non-Emergent Contact Non-Emergency issues call your: Primary Care Provider . . "Provider Documentation" section prepared by Annabella Real. VTE Core Measure Inpt VTE Proph given/why not?: SCD's
--- NOTE | 2016-08-25 14:24 | Discharge Summary ---
Discharge Summary Admission Date: Aug 25, 2016 at 02:11 Discharge Date: Aug 25, 2016 Discharge Disposition: Home Principal Diagnosis: Right Upper Quadrant Abdominal Pain, likely musculoskeletal Medication Reconciliation New Medications: Cyclobenzaprine Hcl (Flexeril) 10 Mg Tab 10 MG PO TID for 3 Days, #9 TAB Oxycodone/Acetaminophen 5MG/325MG (Percocet 5MG/325MG) Tab 1 TABLET PO Q6H PRN for Pain for 3 Days, #12 TAB Continued Medications: Amphetamine-Dextroamphetamine 20MG (Adderall Xr 20MG) 1 Cap Cap 20 MG PO BID, CAP TAKE THIS MEDICATION EVERY MORNING AND IN THE AFTERNOON Omeprazole (Prilosec) 40 Mg Cap 1 CAP PO DAILY for 30 Days, #30 CAP 3 Refills Ondasetron Odt (Zofran Odt) 4 Mg Tab 4 MG SL Q4 PRN for Nausea or Vomiting, #20 TAB Discontinued Medications: Oxycodone Immediate Rel Tab (Roxicodone Ir) 5 Mg Tab 1-2 TAB PO Q4H PRN for Severe Pain, #10 TAB For Initial Treatment Admission Information HPI (per Admitting provider): DATE OF ADMISSION: 08/25/2016 PRIMARY CARE DOCTOR: CHIEF COMPLAINT: Right-sided abdominal pain. HISTORY OF PRESENT ILLNESS: Medical history significant for ADHD, ongoing tobacco abuse, migraine. hx migraine sp occipital nerve injection One week history of right-sided abdominal pain, achy, sharp, going to her chest and back, nausea with one episode of vomiting. Good bowel movement. No fever, no chills. no cough sx. Denies unusual exertion or on lifting. Patient recalls couple of similar episodes in the last 6 months w spontaneous resolution. Seen at the Emergency Room a few days ago. CAT scan of the abd pelvis, gallbladder US were normal. Bloodwork normal. Given prescriptions for Prilosec, Zofran with no response. intractable pain at home. Patient returned to the Emergency Room tonight. MEDICAL HISTORY: As above. SURGERIES: Appendectomy, knee surgery, septoplasty, tonsillectomy and adenoidectomy. HOME MEDICATIONS: Include Zofran, Oxy-IR Adderall, omeprazole. ALLERGIES: No known drug allergies. FAMILY HISTORY: Hypertension. PERSONAL SOCIAL HISTORY: About 4 packs per week. No chronic intake of alcoholic beverages. [employer] employee REVIEW OF SYSTEMS: As per HPI. all other ROS negative PHYSICAL EXAMINATION: VITAL SIGNS: Blood pressure was noted to be 134/89, pulse 90 RR 27, T 37 O2 sats 97% on room air. GENERAL: Noted to be obese, uncomfortable, in no respiratory distress. SKIN: Normal color. HEENT: [place] palpebral conjunctivae. Dry mucosa. NECK: Short neck. LUNGS: Decreased breath sounds. ABDOMEN: RUQ/epigastric tenderness (hyperaesthetic) EXTREMITIES: No edema. no tenderness NEUROLOGIC: No gross focality. LABS: Hemoglobin 14, hematocrit 30, white cells 9.7, platelets 187. Sodium 140, potassium 3.7, chloride 105, CO2 27, BUN 9, creatinine 0.7, glucose 100 LFTs, lipase N, D-dimer was normal. Troponin normal. UA was normal. CXR no infiltrate ASSESSMENT: 1. Right upper quadrant/epigastric pain. Differentials include : gastric pathology (?gastritis) abd wall ? IBS. No signs of toxicity. 2. ADD, stable on meds 3. Ongoing tobacco abuse. 4. hx MRSA PLAN: Observation GMF analgesia GI cocktail, PPI trial antispasmodics prn Warm compress for ant abd wall Consider GI consult in the morning if without response to above measures. Nicotine patch. DVT prophylaxis, SCDs. Full code. Hospital Course This is a 26 year old female with PMH of ADHD, tobacco use presents with right upper quadrant abdominal pain Right Upper Quadrant Abdominal pain patient presented to the ER on 08/[address] abdomen/pelvis performed, no significant findings CXR/Abdominal X-ray - no significant findings RUQ U/S = no gallbladder disease hemodynamically stable no findings on labwork: CMP, lipase wnl likely musculoskeletal due to worsening with palpation will d/c on a three day supply of Percocet, Flexeril, and PPI outpatient f/u with PCP on 08/27/[address] Dominguez DVT ppx SCDs FULL CODE Total time spent on discharge = 20 minutes This includes examination of the patient, discharge planning, medication reconciliation, and communication with other providers. Discharge Instructions Please follow-up with Dr. Dominguez on August 27 @ 3:00PM * You will be discharged on Percocet (narcotic pain medication) - do not drive if taking this medication * You will be discharged on Flexeril (muscle relaxer) - do not drive if taking this medication
[2016-08-25 14:34] VITALS: BP 127/78; PULSE 80; TEMP 36.7; O2SAT 98
[2016-08-26] MEDS ORDERED: PANTOprazole SOD 40 MG TAB PO SCH (09:00)
== END 2016-08-25 14:59 | disposition home or self-care (01) ==
LOC: ENRESERVTM → ENRESERVDT → C.EDB 22:59 → C.MSN 08-25 02:11 → EDBEDREQ 08-25 02:22
PROVIDERS: ADMIT Family Medicine; ATTEND Family Medicine
DX: R10.11 Right upper quadrant pain (principal); R10.13 Epigastric pain; F17.200 Nicotine dependence, unspecified, uncomplicated; F90.9 Attention-deficit hyperactivity disorder, unspecified type; Z90.49 Acquired absence of other specified parts of digestive tract; Z86.14 Personal history of Methicillin resistant Staphylococcus aureus infection; Z83.3 Family history of diabetes mellitus; Z82.49 Family history of ischemic heart disease and other diseases of the circulatory system; Z84.1 Family history of disorders of kidney and ureter

== ENCOUNTER 2016-09-23 17:45 | Emergency (ER) | payer OTHER ==
[~2016-09-23] VITALS: Ht 182.9 cm; Wt 102.0 kg
[~2016-09-23 17:45] MED LIST changes: -OXYC1TAB3 PO
[2016-09-23 17:48] VITALS: TEMP 36.5; Ht 182.9 cm; Wt 102.0 kg
[2016-09-23] MEDS ORDERED: MoRPHine SULFATE 10 MG/ML CARP/VIAL IV STA (18:06)
[2016-09-23] MEDS ORDERED: SODIUM CHLORIDE 0.9% 500ML 500 ML IV STA (18:06)
[2016-09-23] MEDS ORDERED: OPTIRAY 320 IV PRN (18:15)
[2016-09-23 18:23] LABS: BASO % 0.3 %; BASO ABS # 0.03 K/uL (0-0.2); COMPLETE YES; EOS % 4.9 %; HEMATOCRIT 39.7 % (37-47); IG% 1.1 %; LYMPH % 24.4 %; LYMPH ABS # 2.76 K/uL (1.2-3.4); MEAN CELL VOLUME 93.6 fL (80-100); MEAN CORPUSCULAR HEMOGLOBIN 32.8 pg (25-34); MEAN PLATELET VOLUME 9.8 fL (7.4-10.4); MONO % 9.8 %; NEUT % 59.5 %; PLATELET COUNT 245 K/uL (130-400); RED BLOOD COUNT 4.24 M/uL (4.2-5.4); WHITE BLOOD COUNT 11.32 K/uL (4.8-10.8)
[2016-09-23 18:39] LABS: ALT/SGPT 124 U/L (12-78); AST/SGOT 26 U/L (15-37); BLOOD UREA NITROGEN 7 mg/dl (7-18); BUN/CREATININE RATIO 9.9 (10-20); CALCIUM 8.9 mg/dl (8.5-10.1); CARBON DIOXIDE 27 mmol/L (21-32); CHLORIDE 103 mmol/L (98-107); CREATININE 0.71 mg/dl (0.60-1.20); GLUCOSE 92 mg/dl (70-99); SODIUM 140 mmol/L (136-145)
[2016-09-23 18:42] LABS: ALKALINE PHOSPHATASE 95 U/L (45-117)
--- NOTE | 2016-09-23 19:02 | DIAGNOSTIC IMAGING REPORT ---
CHEST ONE VIEW PORTABLE CLINICAL HISTORY: sob dyspnea COMPARISON STUDY: 08/25/2016 FINDINGS: The bones soft tissues and hemidiaphragms are normal. The cardiomediastinal silhouette is normal. The lungs are clear. The pulmonary vasculature is normal. IMPRESSION: Negative chest. Electronically signed by: Kike Alvarado M.D. 09/23/2016 7:01 PM Dictated Date/Time: 09/23/2016 7:01 PM
--- NOTE | 2016-09-23 19:35 | DIAGNOSTIC IMAGING REPORT ---
CHEST CTA for PULMONARY ARTERIES CT DOSE: 1313.26 mGy.cm HISTORY: Chest pain dyspnea TECHNIQUE: Multiaxial CT images of the chest were performed following the intravenous administration of contrast to evaluate the pulmonary arteries. Maximal intensity projection images were also obtained. COMPARISON STUDY: None. FINDINGS: There is a normal caliber thoracic aorta with no evidence for dissection. There is no evidence for pulmonary embolus. No pleural effusions. No pneumothorax. The liver and spleen are unremarkable. No mediastinal or hilar lymphadenopathy. The central airways are patent. The lungs are clear. IMPRESSION: No evidence for pulmonary embolus. Electronically signed by: Kike Alvarado M.D. 09/23/2016 7:33 PM Dictated Date/Time: 09/23/2016 7:30 PM
[2016-09-23 19:42] VITALS: BP 137/79; PULSE 80; O2SAT 100
--- NOTE | 2016-09-23 19:42 | DIAGNOSTIC IMAGING REPORT ---
ABDOMEN AND PELVIS CT WITH IV AND ORAL CONTRAST CT DOSE: HISTORY: Pain. Nausea. feels like stomach fills and hurts following eating. 1hr oral TECHNIQUE: Multiaxial CT images of the abdomen and pelvis were performed following the use of intravenous and oral contrast. COMPARISON STUDY: 08/22/2016 FINDINGS: Lung bases are clear. Liver spleen and pancreas are unremarkable. Interval cholecystectomy. Trace amount of fluid within the gallbladder fossa region most likely on a postoperative basis. No well-defined abscess or collection is not appreciated. Kidneys enhance uniformly. There is no evidence for hydronephrosis. Bowel pattern is nonobstructive throughout. Patient is status post appendectomy. Small bilateral ovarian follicular cyst. No significant free fluid within pelvic cul-de-sac. Bladder is midline. IMPRESSION: 1. Operative changes consistent with recent cholecystectomy and prior appendectomy. 2. Trace amount of fluid within the residual gallbladder fossa considered unremarkable on a recent postoperative basis. 3. Nonobstructive bowel pattern. 4. Small bilateral ovarian follicular cysts. 5. Trace residual free air anterior to the liver. This again is unremarkable in a recent postoperative patient Electronically signed by: Kike Alvarado M.D. 09/23/2016 7:41 PM Dictated Date/Time: 09/23/2016 7:35 PM
[2016-09-23 19:50] LABS: PREG INTERNAL NEGATIVE QC NEG CLEAR BACKGROUND; PREG INTERNAL POSITIVE QC POS CONTROL LINE
[2016-09-23 19:55] LABS: MANUAL MICROSCOPIC REQUIRED? NO; REVIEW REQ? NO; URINE APPEARANCE CLEAR (CLEAR); URINE BILIRUBIN NEG (NEG); URINE COLOR YELLOW; URINE EPITHELIAL CELL AUTO 20-30 /lpf (0-5); URINE NITRITE NEG (NEG); URINE PH 7.5 (4.5-7.5); URINE SPECIFIC GRAVITY 1.003 (1.000-1.030); UROBILINOGEN NEG (NEG); ZZUR CULT IF INDIC CLEAN CATCH NO
[2016-09-23] MEDS ORDERED: ONDA4TAB46 PO (20:01)
--- NOTE | 2016-09-23 20:52 | EMERGENCY ROOM VISIT NOTE ---
History Report prepared by Gallo: Alyssa Qureshi Under the Supervision of: Dr. Sai Alvarenga D.O. First contact with patient: 17:57 Chief Complaint: ABDOMINAL PAIN Stated Complaint: GALLBLADDER SURGERY09/17/16,ABD PAIN,SICK AFTER EAT History of Present Illness The patient is a 26 year old female who presents to the Emergency Room with complaints of intermittent upper abdominal pain beginning 4 days ago. The patient states that she had an outpatient cholecystectomy on 09/17 and felt fine up until 4 days ago. She reports that when she is eating she gets upper abdominal pain that feels like the food is "stuck" and it does not happen with liquid. She complains of shortness of breath beginning 2 days ago and nausea. She notes that her LNMP was on 09/11. She denies any history of cancer, previous blood clot, diabetes, hypertension, high cholesterol, leg swelling, fever, and vomiting. The patient states that she is a smoker. Denies any history of sudden in her family at a young age. Her pain in her abdomen does not radiate anywhere. Exacerbating factors truly only when eating. Source of History: patient Onset: 4 days ago Position: abdomen Quality: other (stuck) Timing: intermittent Modifying Factors (Worsening): eating Associated Symptoms: + SOB, + nausea, No fevers, No vomiting Note: She notes that her LNMP was on 09/11. She denies any history of cancer, previous blood clot, diabetes, hypertension, high cholesterol, leg swelling. Review of Systems See HPI for pertinent positives & negatives. A total of 10 systems reviewed and were otherwise negative. Past Medical & Surgical Medical Problems: (1) ADD (attention deficit disorder) (2) ADHD (attention deficit hyperactivity disorder) (3) Allergic rhinitis (4) Avulsion fracture of metatarsal bone of left foot (5) H/O methicillin resistant Staphylococcus aureus (6) Migraine (7) Tobacco abuse Surgical Problems: (1) H/O nasal septoplasty (2) History of appendectomy (3) History of appendectomy (4) History of arthroscopic knee surgery (5) History of nasal septoplasty (6) History of tonsillectomy and adenoidectomy (7) Status post tonsillectomy and adenoidectomy Family History Cancer Diabetes mellitus Hypertension Kidney disease Kidney stones Social History Smoking Status: Current Every Day Smoker Alcohol Use: occasionally Drug Use: none Marital Status: single Housing Status: lives with significant other Occupation Status: employed Current/Historical Medications Scheduled Amphetamine-Dextroamphetamine 20MG (Adderall Xr 20MG), 20 MG PO BID Omeprazole (Prilosec), 1 CAP PO DAILY Scheduled PRN Ondansetron Hcl (Zofran), 4 MG PO TID PRN for Nausea Allergies Coded Allergies: No Known Allergies (Verified , 07/02/16) Physical Exam Vital Signs Date Time Temp Pulse Resp B/P Pulse Ox O2 Delivery O2 Flow Rate FiO2 09/23/16 19:42 80 18 137/79 100 Room Air 09/23/16 17:48 36.5 95 20 144/89 100 Room Air Physical Exam GENERAL: sitting up in bed, alert, well appearing, well nourished, no distress, non-toxic EYE EXAM: normal conjunctiva OROPHARYNX: no exudate, no erythema, lips, buccal mucosa, and tongue normal and mucous membranes are moist NECK: supple, no nuchal rigidity, no adenopathy, non-tender LUNGS: Clear to auscultation. Normal chest wall mechanics HEART: no murmurs, S1 normal and S2 normal ABDOMEN: abdomen soft, slight tenderness in epigastric region, normo-active bowel sounds, no masses, no rebound or guarding. BACK: Back is symmetrical on inspection and there is no deformity, no midline tenderness, no CVA tenderness. SKIN: abdominal incisions are clean, dry, and intact UPPER EXTREMITIES: upper extremities are grossly normal. LOWER EXTREMITIES: No pitting edema. NEURO EXAM: Normal sensorium, cranial nerves II-XII grossly intact, normal speech, no gross weakness of arms, no gross weakness of legs. Medical Decision & Procedures ER Provider Diagnostic Interpretation: Xray results per the radiologist and my interpretation. Other results have been interpreted by the radiologist and reviewed by me. CHEST ONE VIEW PORTABLE FINDINGS: The bones soft tissues and hemidiaphragms are normal. The cardiomediastinal silhouette is normal. The lungs are clear. The pulmonary vasculature is normal. IMPRESSION: Negative chest. Electronically signed by: Kike Alvarado M.D. 09/23/2016 7:01 PM Dictated Date/Time: 09/23/2016 7:01 PM CHEST CTA for PULMONARY ARTERIES COMPARISON STUDY: None. FINDINGS: There is a normal caliber thoracic aorta with no evidence for dissection. There is no evidence for pulmonary embolus. No pleural effusions. No pneumothorax. The liver and spleen are unremarkable. No mediastinal or hilar lymphadenopathy. The central airways are patent. The lungs are clear. IMPRESSION: No evidence for pulmonary embolus. Electronically signed by: Kike Alvarado M.D. 09/23/2016 7:33 PM Dictated Date/Time: 09/23/2016 7:30 PM ABDOMEN AND PELVIS CT WITH IV AND ORAL CONTRAST FINDINGS: Lung bases are clear. Liver spleen and pancreas are unremarkable. Interval cholecystectomy. Trace amount of fluid within the gallbladder fossa region most likely on a postoperative basis. No well-defined abscess or collection is not appreciated. Kidneys enhance uniformly. There is no evidence for hydronephrosis. Bowel pattern is nonobstructive throughout. Patient is status post appendectomy. Small bilateral ovarian follicular cyst. No significant free fluid within pelvic cul-de-sac. Bladder is midline. IMPRESSION: 1. Operative changes consistent with recent cholecystectomy and prior appendectomy. 2. Trace amount of fluid within the residual gallbladder fossa considered unremarkable on a recent postoperative basis. 3. Nonobstructive bowel pattern. 4. Small bilateral ovarian follicular cysts. 5. Trace residual free air anterior to the liver. This again is unremarkable in a recent postoperative patient Electronically signed by: Kike Alvarado M.D. 09/23/2016 7:41 PM Dictated Date/Time: 09/23/2016 7:35 PM Laboratory Results 09/23/16 18:10 Red Blood Count 4.24, Mean Corpuscular Volume 93.6, Mean Corpuscular Hemoglobin 32.8, Mean Corpuscular Hemoglobin Concent 35.0, Mean Platelet Volume 9.8, Neutrophils (%) (Auto) 59.5, Lymphocytes (%) (Auto) 24.4, Monocytes (%) (Auto) 9.8, Eosinophils (%) (Auto) 4.9, Basophils (%) (Auto) 0.3, Neutrophils # (Auto) 6.74, Lymphocytes # (Auto) 2.76, Monocytes # (Auto) 1.11, Eosinophils # (Auto) 0.55, Basophils # (Auto) 0.03 09/23/16 18:10 Test 09/23/16 18:10 09/23/16 19:38 White Blood Count 11.32 K/uL (4.8-10.8) Red Blood Count 4.24 M/uL (4.2-5.4) Hemoglobin 13.9 g/dL (12.0-16.0) Hematocrit 39.7 % (37-47) Mean Corpuscular Volume 93.6 fL (80-100) Mean Corpuscular Hemoglobin 32.8 pg (25-34) Mean Corpuscular Hemoglobin Concent 35.0 g/dl (32-36) Platelet Count 245 K/uL (130-400) Mean Platelet Volume 9.8 fL (7.4-10.4) Neutrophils (%) (Auto) 59.5 % Lymphocytes (%) (Auto) 24.4 % Monocytes (%) (Auto) 9.8 % Eosinophils (%) (Auto) 4.9 % Basophils (%) (Auto) 0.3 % Neutrophils # (Auto) 6.74 K/uL (1.4-6.5) Lymphocytes # (Auto) 2.76 K/uL (1.2-3.4) Monocytes # (Auto) 1.11 K/uL (0.11-0.59) Eosinophils # (Auto) 0.55 K/uL (0-0.5) Basophils # (Auto) 0.03 K/uL (0-0.2) RDW Standard Deviation 41.9 fL (36.4-46.3) RDW Coefficient of Variation 12.3 % (11.5-14.5) Immature Granulocyte % (Auto) 1.1 % Immature Granulocyte # (Auto) 0.13 K/uL (0.00-0.02) D-Dimer 2040 ug/L FEU (0-500) Anion Gap 10.0 mmol/L (3-11) Est Creatinine Clear Calc Drug Dose 161.9 ml/min Estimated GFR () 137.2 Estimated GFR (Non- 118.4 BUN/Creatinine Ratio 9.9 (10-20) Calcium Level 8.9 mg/dl (8.5-10.1) Total Bilirubin 0.2 mg/dl (0.2-1) Direct Bilirubin < 0.1 mg/dl (0-0.2) Aspartate Amino Transf (AST/SGOT) 26 U/L (15-37) Alanine Aminotransferase (ALT/SGPT) 124 U/L (12-78) Alkaline Phosphatase 95 U/L (45-117) Total Protein 7.6 gm/dl (6.4-8.2) Albumin 3.8 gm/dl (3.4-5.0) Lipase 211 U/L (73-393) Urine Color YELLOW Urine Appearance CLEAR (CLEAR) Urine pH 7.5 (4.5-7.5) Urine Specific [place] 1.003 (1.000-1.030) Urine Protein NEG (NEG) Urine Glucose (UA) NEG (NEG) Urine Ketones NEG (NEG) Urine Occult Blood NEG (NEG) Urine Nitrite NEG (NEG) Urine Bilirubin NEG (NEG) Urine Urobilinogen NEG (NEG) Urine Leukocyte Esterase NEG (NEG) Urine WBC (Auto) 0 /hpf (0-5) Urine RBC (Auto) 0-4 /hpf (0-4) Urine Hyaline Casts (Auto) 0 /lpf (0-5) Urine Epithelial Cells (Auto) 20-30 /lpf (0-5) Urine Bacteria (Auto) NEG (NEG) Urine Test NEG (NEG) Laboratory results per my review. Medications Administered Medications (Trade) Dose Ordered Sig/Champ Route Start Time Stop Time Status Last Admin Dose Admin Sodium Chloride (Nss 500ml) 500 ml @ 999 mls/hr Q31M STAT IV 09/23/16 18:06 09/23/16 18:36 DC 09/23/16 18:22 999 MLS/HR Morphine Sulfate (MoRPHine SULFATE INJ) 6 mg NOW STAT IV 09/23/16 18:06 09/23/16 18:10 DC 09/23/16 18:23 6 MG ECG Indication: abdominal pain Rate (beats per minute): 91 Rhythm: sinus rhythm Findings: no ectopy, other (normal axis) ED Course ED COURSE: Vital signs were reviewed and normal The patients medical record was reviewed The above diagnostic studies were performed and reviewed. ED treatments and interventions as stated above. 1757: The patient was evaluated in room A11. A complete history and physical examination was performed. 1805: Morphine Sulfate 6mg IV, Sodium Chloride 500 ml @ 999 mls/hr IV. 2003: I updated the patient. 2008: Upon reevaluation, the patient is hemodynamically stable.I discussed my findings with the patient and she understands and agrees with the treatment plan. Based on the patients age, coexisting illnesses, exam and lab findings the decision to treat as an outpatient was made. The patient remained stable while under my care. The patient appeared well at the time of discharge. Medical Decision Differential diagnoses includes but is not limited to gastritis, peptic ulcer disease, GERD, gallbladder disease, pancreatitis, small bowel obstruction, acute coronary syndrome, pericarditis, ischemic bowel, irritable bowel disease, irritable bowel syndrome, appendicitis, diverticulitis, malignancy, hernia, urinary tract infection, torsion, /ectopic , perforation, trauma, infectious. Patient is a 26-year-old female status post cholecystectomy and presents the ER for epigastric abdominal fullness that starts following eating. She also complains of mild shortness of breath which has been present since the surgery. Patient has no risk factors for PE with exception of the surgery. Abdominal exam is completely benign. CT PE was negative and perform secondary to a positive d-dimer. CT of the abdomen and pelvis was unremarkable without signs of obstruction or infection. Labs include no significant leukocytosis or anemia. BMP along with LFTs, bilirubin and lipase was unremarkable. UA was negative along with a negative urine . Patient was given a bolus normal saline along with pain medications felt slightly better. She discharged follow-up with her primary care doctor and Gen. surgery. Discussed with Pt concerning signs and symptoms to watch out for. Pt was instructed to follow up with their PCP and discussed with the patient their option to return to the ED at anytime for persistent or worsening symptoms. The appropriate anticipatory guidance and out-patient management, including indications for return to the emergency department, were explained at length to the patient and understood. Impression Primary Impression: Epigastric abdominal pain Scribe Attestation The scribe's documentation has been prepared under my direction and personally reviewed by me in its entirety. I confirm that the note above accurately reflects all work, treatment, procedures, and medical decision making performed by me. Departure Information Dispostion Home / Self-Care Prescriptions Ondansetron Hcl (ZOFRAN) 4 Mg Tab 4 MG PO TID Y for Nausea, #3 TAB Prov: Sai Alvarenga, 09/23/16 Referrals Kike Dominguez M.D. (PCP) Forms HOME CARE DOCUMENTATION FORM, IMPORTANT VISIT INFORMATION Patient Instructions Abdominal Pain - [facility], [facility] Additional Instructions Please follow up with your primary care doctor with in the next 24 hours. Any worsening of your symptoms, please return to the ED immediately. This includes fevers greater than 100.4, feeling of food gets stuck in throat, persistent nausea vomiting, worsening abdominal pain, or any other concerning signs or symptoms from your standpoint. Please take Zofran as needed for nausea.
== END 2016-09-23 20:07 | disposition home or self-care (01) ==
LOC: C.EDB 17:46 → C.EDA 20:07
DX: R10.13 Epigastric pain (principal); F90.9 Attention-deficit hyperactivity disorder, unspecified type; F17.200 Nicotine dependence, unspecified, uncomplicated; Z86.14 Personal history of Methicillin resistant Staphylococcus aureus infection; Z90.49 Acquired absence of other specified parts of digestive tract; Z90.89 Acquired absence of other organs; Z98.890 Other specified postprocedural states; Z83.3 Family history of diabetes mellitus; Z82.49 Family history of ischemic heart disease and other diseases of the circulatory system; Z84.1 Family history of disorders of kidney and ureter; Z79.899 Other long term (current) drug therapy